=== PATIENT | female | born 1950 | race Caucasian/White ===

== ENCOUNTER 2021-02-04 06:57 | Day surgery (SDC) | payer OTHER, SELFPAY ==
[~2021-02-04] VITALS: Ht 172.7 cm; Wt 92.1 kg
[2021-02-04] MEDS ORDERED: CEFAZOLIN SOD 2 GM in D5W 50 ML IV ONE (07:00)
[2021-02-04] MEDS ORDERED: BUPIVACAINE /EPINEPHRINE/PF 0.5% 30 ML VIAL INJ ONE (08:50)
[2021-02-04] MEDS ORDERED: LR 1,000 ML IV.SOLN IV ONE (08:50)
[2021-02-04] MEDS ORDERED: hydrALAZINE HCL 20 MG/ML VIAL IVP ONE (08:50)
[2021-02-04] MEDS ORDERED: SUGAMMADEX SODIUM 200 MG/2 ML VIAL IV ONE (08:50)
[2021-02-04] MEDS ORDERED: MIDAZOLAM HCL 5 MG/5 ML VIAL IVP ONE (08:50)
[2021-02-04] MEDS ORDERED: SEVOFLURANE 15 MIN GAS INH ONE (08:50)
[2021-02-04] MEDS ORDERED: NS IRRIG SOLN 1000 ML IR ONE (08:50)
[2021-02-04] MEDS ORDERED: SUCCINYLCHOLINE CHLORIDE 20 MG/ML(QUELICIN) IVP ONE (08:50)
[2021-02-04] MEDS ORDERED: PROPOFOL 200MG/ 20ML VIAL (DIPRIVAN) IV ONE (08:50)
[2021-02-04] MEDS ORDERED: ROCURONIUM BROMIDE 10 MG/ML (ZEMURON) IV ONE (08:50)
[2021-02-04] MEDS ORDERED: fentaNYL CITRATE/PF 100 MCG/2 ML AMP IVP ONE (08:50)
[2021-02-04] MEDS ORDERED: DEXAMETHASONE SOD PHOSPHATE 4 MG/ML VIAL IVP ONE (08:50)
[2021-02-04] MEDS ORDERED: KETOROLAC TROMETHAMINE 30 MG VIAL IVP ONE (08:50)
[2021-02-04] MEDS ORDERED: MEPERIDINE HCL 10 MG/ML SYRINGE IV ONE (08:50)
[2021-02-04] MEDS ORDERED: MEPERIDINE HCL/PF 25 MG/ML DISP.SYRIN IVP PRN (11:15)
[2021-02-04] MEDS ORDERED: KETOROLAC TROMETHAMINE 30 MG VIAL IVP PRN (11:15)
[2021-02-04] MEDS ORDERED: ONDANSETRON HCL 4 MG/2 ML VIAL IVP PRN (11:15)
[2021-02-04] MEDS ORDERED: LR 1,000 ML IV SCH (11:15)
[2021-02-04] MEDS ORDERED: HYDROmorphone 1 MG/ML INJ. CARTRIDGE IVP PRN ×2 (11:15)
[2021-02-04] MEDS ORDERED: METOCLOPRAMIDE HCL 10 MG/2 ML VIAL IVP PRN (11:15)
[2021-02-04] MEDS ORDERED: HYDROcodone/ACETAMIN 5-325 MG TAB (NORCO/ VICODIN) PO PRN (11:45)
[2021-02-04 13:24] VITALS: BP_SYST 146
== END 2021-02-04 14:05 | disposition home or self-care (01) ==
LOC: SMU 06:57 → SDS 06:57
PROVIDERS: ATTEND Surgery
DX: K80.12 Calculus of gallbladder with acute and chronic cholecystitis without obstruction (principal); N73.6 Female pelvic peritoneal adhesions (postinfective); I12.9 Hypertensive chronic kidney disease with stage 1 through stage 4 chronic kidney disease, or unspecified chronic kidney disease; N18.30 Chronic kidney disease, stage 3 unspecified; E78.5 Hyperlipidemia, unspecified; K21.9 Gastro-esophageal reflux disease without esophagitis; Z90.710 Acquired absence of both cervix and uterus; Z20.822 Contact with and (suspected) exposure to COVID-19
CPT/HCPCS: 47562; 88304; C1727; C1758; C9399; J0330; J0360; J0690; J1100; J1885; J2175; J2250; J2704; J3010; J3490; J7060; J7120; U0003; Q9967

== ENCOUNTER 2023-11-28 08:01 | Inpatient (IN) | payer OTHER ==
[~2023-11-28] VITALS: Ht 172.7 cm; Wt 78.9 kg
[2023-11-28 08:05] VITALS: BP_SYST 124; PULSE 97; RESP 20; TEMP 97.6; O2SAT 97
[2023-11-28 09:07] LABS: HEMATOCRIT 37.9 % (36-48); HEMOGLOBIN 12.9 g/dL (12.0-16.0); MEAN CORPUSCULAR HEMOGLOBIN 30 pg (27-31); MEAN CORPUSCULAR HGB CONC 34 % (32-36); MEAN CORPUSCULAR VOLUME 87 fL (79.0-98.0); PLATELET COUNT (AUTO) 260 K/uL (130-430); RED BLOOD CELL COUNT(AUTO) 4.35 MIL/uL (4.2-6.2); WHITE BLOOD COUNT (AUTO) 7.8 K/uL (4.8-10.8)
[2023-11-28 09:19] LABS: ALANINE AMINOTRANSFERASE 274 U/L (12-78); ALBUMIN 2.6 g/dL (3.4-4.8); ANION GAP 11 (5-15); ASPARTATE AMINOTRANSFERASE 209 U/L (10-37); BILIRUBIN,DIRECT 18.6 mg/dL (0.0-0.3); CALCIUM 9.3 mg/dL (8.4-11.0); CARBON DIOXIDE 26 mmol/L (23-29); CHLORIDE 96 mmol/L (98-107); CREATININE 0.85 mg/dL (0.55-1.30); GLUCOSE 274 mg/dL (74-106); LIPASE 32 U/L (16-77); POTASSIUM 3.7 mmol/L (3.5-5.1); SODIUM SERUM 133 mmol/L (136-145); TOTAL PROTEIN, SERUM 6.2 g/dL (6.4-8.3); UREA NITROGEN, BLOOD 14 mg/dL (8-21)
[2023-11-28 09:21] LABS: TOTAL BILIRUBIN 21.9 mg/dL (0.0-1.0)
[2023-11-28 10:45] LABS: ATYPICAL LYMPHOCYTES % 7 % (0-0); BAND % (MANUAL) 2 % (0-6); BASOPHILS % (MANUAL) 0 % (0-2); EOSINOPHILS % (MANUAL) 0 % (0-7); LYMPHOCYTES % (MANUAL) 38 % (20-46); MONOCYTES % (MANUAL) 12 % (0-11); PLATELET ESTIMATE ADEQUATE (ADEQUATE)
[2023-11-28 11:33] LABS: ALBUMIN 2.6 g/dL (3.4-4.8); BILIRUBIN,DIRECT 19.1 mg/dL (0.0-0.3); TOTAL PROTEIN, SERUM 6.2 g/dL (6.4-8.3)
[2023-11-28] MEDS: ONDANSETRON HCL 4 MG/2 ML VIAL IVP PRN (11:40)
[2023-11-28] MEDS: 0.45% NACL 1,000 ML IV ONE (11:44)
[2023-11-28 11:45] LABS: TOTAL BILIRUBIN 22.2 mg/dL (0.0-1.0)
[2023-11-28 15:44] VITALS: BP_SYST 135; PULSE 81; RESP 16; TEMP 97.9; O2SAT 96
[2023-11-28 20:00] VITALS: BP_SYST 127; PULSE 77; RESP 18; TEMP 97.7; O2SAT 95
[2023-11-28 22:17] LABS: INR 1.1 (0.8-1.2); PROTHROMBIN TIME 11.3 SECS (9.5-12.5)
[2023-11-29] VITALS: BP_SYST 142; PULSE 64; RESP 16; TEMP 97.7; O2SAT 99
[2023-11-29 08:09] LABS: HEMATOCRIT 35.9 % (36-48); HEMOGLOBIN 12.3 g/dL (12.0-16.0); MEAN CORPUSCULAR HEMOGLOBIN 30 pg (27-31); MEAN CORPUSCULAR HGB CONC 34 % (32-36); MEAN CORPUSCULAR VOLUME 87 fL (79.0-98.0); PLATELET COUNT (AUTO) 261 K/uL (130-430); RED BLOOD CELL COUNT(AUTO) 4.13 MIL/uL (4.2-6.2); RED CELL DISTRIBUTION WIDTH 14.3 % (9.0-15.0); WHITE BLOOD COUNT (AUTO) 5.4 K/uL (4.8-10.8)
[2023-11-29 08:10] LABS: ANION GAP 4 (5-15); CALCIUM 8.6 mg/dL (8.4-11.0); CARBON DIOXIDE 28 mmol/L (23-29); CHLORIDE 99 mmol/L (98-107); CREATININE 0.75 mg/dL (0.55-1.30); GLUCOSE 211 mg/dL (74-106); POTASSIUM 3.8 mmol/L (3.5-5.1); SODIUM SERUM 131 mmol/L (136-145); UREA NITROGEN, BLOOD 10 mg/dL (8-21)
[2023-11-29 08:13] VITALS: BP_SYST 150; PULSE 74; RESP 16; TEMP 97.4; O2SAT 98
[2023-11-29 09:46] LABS: BASOPHILS % (MANUAL) 0 % (0-2); EOSINOPHILS % (MANUAL) 4 % (0-7); LYMPHOCYTES % (MANUAL) 24 % (20-46); MONOCYTES % (MANUAL) 9 % (0-11)
[2023-11-29 09:47] LABS: PLATELET ESTIMATE ADEQUATE (ADEQUATE); STOMATOCYTES FEW; TARGET CELLS FEW
[2023-11-29 11:17] VITALS: BP_SYST 139; PULSE 94; RESP 16; TEMP 97.1; O2SAT 97
[2023-11-29 12:04] LABS: BASOPHILS # (AUTO) 0.1 K/uL (0.0-0.2); BASOPHILS % (AUTO) 1.2 % (0.0-2.0); EOSINOPHILS # (AUTO) 0.1 K/uL (0.0-0.4); EOSINOPHILS % (AUTO) 1.7 % (0.0-4.0); HEMATOCRIT 37.1 % (36-48); HEMOGLOBIN 12.8 g/dL (12.0-16.0); LYMPHOCYTES # (AUTO) 2.5 K/uL (1.0-5.5); MEAN CORPUSCULAR HEMOGLOBIN 30 pg (27-31); MEAN CORPUSCULAR HGB CONC 34 % (32-36); MEAN CORPUSCULAR VOLUME 86 fL (79.0-98.0); MONOCYTES # (AUTO) 0.8 K/uL (0.0-1.0); MONOCYTES % (AUTO) 13.4 % (1.7-9.3); NEUTROPHILS # (AUTO) 2.7 K/uL (1.8-7.7); PLATELET COUNT (AUTO) 276 K/uL (130-430); RED CELL DISTRIBUTION WIDTH 13.9 % (9.0-15.0); WHITE BLOOD COUNT (AUTO) 6.2 K/uL (4.8-10.8)
[2023-11-29 12:17] LABS: NEUTROPHILS % (AUTO) 43.7 % (40.0-70.0)
[2023-11-29] MEDS ORDERED: EZET-84 PO (12:52)
[2023-11-29] MEDS ORDERED: NOR10 PO (12:52)
[2023-11-29] MEDS ORDERED: METO-306 PO (14:57)
[2023-11-29 15:30] VITALS: BP_SYST 151; PULSE 72; RESP 16; TEMP 97.9; O2SAT 98
[2023-11-29] MEDS: PANTOPRAZOLE SODIUM 40 MG/VIAL (PROTONIX) IVP ONE (18:24)
[2023-11-29] MEDS: ATORVASTATIN 20 MG TABLET PO ONE (18:25)
[2023-11-29] MEDS: amLODIPine BESYLATE 10 MG TABLET PO ONE (18:25)
[2023-11-29] MEDS: METOPROLOL SUCCINATE 50 MG TAB.SR.24H (TOPROL XL) PO ONE (18:26)
[2023-11-29 18:57] LABS: ALANINE AMINOTRANSFERASE 252 U/L (12-78); ALBUMIN 2.4 g/dL (3.4-4.8); ANION GAP 7 (5-15); ASPARTATE AMINOTRANSFERASE 177 U/L (10-37); CALCIUM 8.7 mg/dL (8.4-11.0); CARBON DIOXIDE 30 mmol/L (23-29); CHLORIDE 99 mmol/L (98-107); GLUCOSE 259 mg/dL (74-106); POTASSIUM 4.1 mmol/L (3.5-5.1); SODIUM SERUM 136 mmol/L (136-145); TOTAL PROTEIN, SERUM 5.8 g/dL (6.4-8.3); UREA NITROGEN, BLOOD 10 mg/dL (8-21)
[2023-11-29 19:11] LABS: TOTAL BILIRUBIN 21.6 mg/dL (0.0-1.0)
[2023-11-29 20:00] VITALS: BP_SYST 136; PULSE 67; RESP 18; TEMP 97.5; O2SAT 97
[2023-11-30] VITALS: BP_SYST 117; PULSE 68; RESP 18; TEMP 97.6; O2SAT 97
[2023-11-30 04:54] LABS: HEMOGLOBIN A1C 9.37 % (<5.7)
[2023-11-30 05:16] LABS: ALANINE AMINOTRANSFERASE 235 U/L (12-78); ALBUMIN 2.2 g/dL (3.4-4.8); ANION GAP 8 (5-15); ASPARTATE AMINOTRANSFERASE 169 U/L (10-37); CALCIUM 8.6 mg/dL (8.4-11.0); CARBON DIOXIDE 27 mmol/L (23-29); CHLORIDE 103 mmol/L (98-107); CREATININE 0.69 mg/dL (0.55-1.30); GLUCOSE 245 mg/dL (74-106); POTASSIUM 4.1 mmol/L (3.5-5.1); SODIUM SERUM 138 mmol/L (136-145); TOTAL PROTEIN, SERUM 5.5 g/dL (6.4-8.3); UREA NITROGEN, BLOOD 8 mg/dL (8-21)
[2023-11-30 05:37] LABS: TOTAL BILIRUBIN 20.3 mg/dL (0.0-1.0)
[2023-11-30 05:44] LABS: BASOPHILS # (AUTO) 0.1 K/uL (0.0-0.2); BASOPHILS % (AUTO) 1.7 % (0.0-2.0); EOSINOPHILS # (AUTO) 0.1 K/uL (0.0-0.4); EOSINOPHILS % (AUTO) 1.6 % (0.0-4.0); HEMATOCRIT 35.4 % (36-48); HEMOGLOBIN 12.2 g/dL (12.0-16.0); LYMPHOCYTES # (AUTO) 2.6 K/uL (1.0-5.5); LYMPHOCYTES % (AUTO) 52.3 % (20.5-51.5); MEAN CORPUSCULAR HEMOGLOBIN 30 pg (27-31); MEAN CORPUSCULAR HGB CONC 34 % (32-36); MEAN CORPUSCULAR VOLUME 87 fL (79.0-98.0); MONOCYTES # (AUTO) 0.6 K/uL (0.0-1.0); MONOCYTES % (AUTO) 11.8 % (1.7-9.3); NEUTROPHILS # (AUTO) 1.6 K/uL (1.8-7.7); NEUTROPHILS % (AUTO) 32.6 % (40.0-70.0); PLATELET COUNT (AUTO) 259 K/uL (130-430); RED BLOOD CELL COUNT(AUTO) 4.07 MIL/uL (4.2-6.2); RED CELL DISTRIBUTION WIDTH 14.2 % (9.0-15.0); WHITE BLOOD COUNT (AUTO) 5.1 K/uL (4.8-10.8)
[2023-11-30 06:01] LABS: BILIRUBIN,URINE 3+ (NEGATIVE); BLOOD, URINE NEGATIVE (NEGATIVE); CLARITY/URINE SL CLOUDY (CLEAR); COLOR,URINE YELLOW (YELLOW); GLUCOSE,URINE TRACE (NEGATIVE); KETONES,URINE NEGATIVE (NEGATIVE); LEUKOCYTE ESTERASE ,URINE 1+ (NEGATIVE); NITRITE, URINE POSITIVE (NEGATIVE); PROTEIN URINE NEGATIVE (NEGATIVE); UROBILINOGEN,URINE 0.2 (0.2-1.0)
[2023-11-30 06:16] LABS: BACTERIA,URINE MANY /HPF (None Seen); RBC,URINE 0-3 /HPF (0-3); WBC,URINE 20-50 /HPF (0-3)
[2023-11-30] MEDS ORDERED: SIMETHICONE 40 MG/0.6 ML ML ONE (06:40)
[2023-11-30 07:06] LABS: HEPATITIS A AB, IgM Negative (Negative); HEPATITIS B CORE AB, IgM Negative (Negative); HEPATITIS B SURFACE AG Negative (Negative); HEPATITIS C VIRUS AB Non Reactive (Non Reactive)
[2023-11-30 08:00] VITALS: BP_SYST 143; PULSE 70; RESP 16; TEMP 96.5; O2SAT 97
[2023-11-30] MEDS: PANTOPRAZOLE SODIUM 40 MG/VIAL (PROTONIX) IVP SCH (08:53)
[2023-11-30] MEDS: METOPROLOL SUCCINATE 50 MG TAB.SR.24H (TOPROL XL) PO SCH (09:00)
[2023-11-30] MEDS: amLODIPine BESYLATE 10 MG TABLET PO SCH (09:00)
[2023-11-30] MEDS: ATORVASTATIN 20 MG TABLET PO SCH (09:00)
[2023-11-30] MEDS ORDERED: DEXTROSE 50% JECT 50 ML DISP.SYRIN IVP PRN (10:00)
[2023-11-30] MEDS ORDERED: GLUCOSE (DEXTROSE) ORAL GEL -Adults PO PRN (10:00)
[2023-11-30] MEDS ORDERED: INDOMETHACIN 50 MG SUPP.RECT RC ONE (10:00)
[2023-11-30] MEDS ORDERED: LIDOCAINE MPF 2% 20 MG/1 ML, 5 ML VIAL INH ONE (10:30)
[2023-11-30] MEDS ORDERED: iohexoL 240 mgI/mL, 50 ML INFUS..BTL IV ONE (10:51)
[2023-11-30] MEDS ORDERED: NACL 0.9% 1,000 ML IV SCH (11:30)
[2023-11-30] MEDS ORDERED: ONDANSETRON HCL 4 MG/2 ML VIAL IVP PRN (11:30)
[2023-11-30] MEDS ORDERED: KETOROLAC TROMETHAMINE 30 MG VIAL IVP PRN (11:30)
[2023-11-30 12:00] VITALS: BP_SYST 148; PULSE 66; RESP 18; TEMP 96.4; O2SAT 98
[2023-11-30] MEDS: hydrALAZINE HCL 20 MG/ML VIAL IVP ONE (12:47)
[2023-11-30] MEDS ORDERED: hydrALAZINE HCL 20 MG/ML VIAL ONE (12:48)
[2023-11-30 16:00] VITALS: BP_SYST 134; PULSE 66; RESP 14; TEMP 97.2; O2SAT 100
[2023-11-30] MEDS: INSULIN REGULAR, HUMAN 100 UNITS/ML, 3 ML VIAL (humuLIN R) SUBCUT PRN (18:08)
[2023-11-30] MEDS: LR 1,000 ML IV SCH (18:58)
[2023-11-30 20:00] VITALS: BP_SYST 135; PULSE 69; RESP 18; TEMP 97.6; O2SAT 97
[2023-11-30] MEDS: cefTRIAXone 1 GM in D5W 50 ML IV SCH (21:31)
[2023-11-30] MEDS: INSULIN GLARGINE 100 UNITS/ML, 10 ML VIAL SUBCUT SCH (21:35)
[2023-12-01] VITALS (8 sets, daily range): BP systolic 128–167; PULSE 63–77; RESP 17–18; TEMP 97.7–99.2; O2SAT 97–100
[2023-12-01 09:52] LABS: BASOPHILS % (AUTO) 0.1 % (0.0-2.0); EOSINOPHILS % (AUTO) 0.2 % (0.0-4.0); HEMATOCRIT 38.9 % (36-48); HEMOGLOBIN 13.2 g/dL (12.0-16.0); LYMPHOCYTES # (AUTO) 6.4 K/uL (1.0-5.5); LYMPHOCYTES % (AUTO) 50.8 % (20.5-51.5); MEAN CORPUSCULAR HEMOGLOBIN 30 pg (27-31); MEAN CORPUSCULAR HGB CONC 34 % (32-36); MEAN CORPUSCULAR VOLUME 88 fL (79.0-98.0); MONOCYTES # (AUTO) 0.8 K/uL (0.0-1.0); MONOCYTES % (AUTO) 6.6 % (1.7-9.3); NEUTROPHILS # (AUTO) 5.3 K/uL (1.8-7.7); NEUTROPHILS % (AUTO) 42.3 % (40.0-70.0); PLATELET COUNT (AUTO) 304 K/uL (130-430); RED BLOOD CELL COUNT(AUTO) 4.44 MIL/uL (4.2-6.2); RED CELL DISTRIBUTION WIDTH 14.6 % (9.0-15.0); WHITE BLOOD COUNT (AUTO) 12.6 K/uL (4.8-10.8)
[2023-12-01 10:10] LABS: ALANINE AMINOTRANSFERASE 205 U/L (12-78); ALBUMIN 2.5 g/dL (3.4-4.8); ANION GAP 12 (5-15); ASPARTATE AMINOTRANSFERASE 94 U/L (10-37); CALCIUM 9.4 mg/dL (8.4-11.0); CARBON DIOXIDE 25 mmol/L (23-29); CHLORIDE 96 mmol/L (98-107); CREATININE 0.91 mg/dL (0.55-1.30); GLUCOSE 314 mg/dL (74-106); POTASSIUM 4.5 mmol/L (3.5-5.1); SODIUM SERUM 133 mmol/L (136-145); TOTAL BILIRUBIN 11.5 mg/dL (0.0-1.0); TOTAL PROTEIN, SERUM 6.6 g/dL (6.4-8.3); UREA NITROGEN, BLOOD 10 mg/dL (8-21)
[2023-12-01] MEDS ORDERED: traMADol HCL HCL 50 MG TABLET (ULTRAM) PO PRN (15:30)
[2023-12-01] MEDS: ACETAMINOPHEN 325 MG TABLET PO PRN (16:05)
[2023-12-01] MEDS: INSULIN GLARGINE 100 UNITS/ML, 10 ML VIAL SUBCUT SCH (21:22)
[2023-12-02] VITALS: BP_SYST 132; PULSE 70; RESP 17; TEMP 96.2; O2SAT 100
[2023-12-02 05:47] LABS: HEMATOCRIT 34.7 % (36-48); HEMOGLOBIN 11.8 g/dL (12.0-16.0); MEAN CORPUSCULAR HEMOGLOBIN 30 pg (27-31); MEAN CORPUSCULAR HGB CONC 34 % (32-36); MEAN CORPUSCULAR VOLUME 88 fL (79.0-98.0); PLATELET COUNT (AUTO) 254 K/uL (130-430); RED BLOOD CELL COUNT(AUTO) 3.94 MIL/uL (4.2-6.2); RED CELL DISTRIBUTION WIDTH 14.5 % (9.0-15.0); WHITE BLOOD COUNT (AUTO) 10.5 K/uL (4.8-10.8)
[2023-12-02 06:25] LABS: ALANINE AMINOTRANSFERASE 134 U/L (12-78); ALBUMIN 2.1 g/dL (3.4-4.8); ANION GAP 11 (5-15); ASPARTATE AMINOTRANSFERASE 47 U/L (10-37); CARBON DIOXIDE 25 mmol/L (23-29); CHLORIDE 102 mmol/L (98-107); GLUCOSE 223 mg/dL (74-106); POTASSIUM 3.7 mmol/L (3.5-5.1); SODIUM SERUM 138 mmol/L (136-145); TOTAL BILIRUBIN 7.2 mg/dL (0.0-1.0); TOTAL PROTEIN, SERUM 5.9 g/dL (6.4-8.3); UREA NITROGEN, BLOOD 9 mg/dL (8-21)
[2023-12-02 08:00] VITALS: O2SAT 97
[2023-12-02 08:10] VITALS: BP_SYST 130; PULSE 74; RESP 18; TEMP 97.8; O2SAT 98
[2023-12-02 08:59] LABS: BASOPHILS % (MANUAL) 0 % (0-2); EOSINOPHILS % (MANUAL) 1 % (0-7); LYMPHOCYTES % (MANUAL) 18 % (20-46); MONOCYTES % (MANUAL) 6 % (0-11)
[2023-12-02 09:00] LABS: ATYPICAL LYMPHOCYTES % 2 % (0-0); PLATELET ESTIMATE ADEQUATE (ADEQUATE)
[2023-12-02 09:01] LABS: STOMATOCYTES FEW; TARGET CELLS FEW
[2023-12-02 12:51] VITALS: BP_SYST 134; PULSE 74; RESP 18; TEMP 96.8; O2SAT 96
[2023-12-02] MEDS ORDERED: LEVO250T73 PO (14:48)
[2023-12-02] MEDS ORDERED: GLIP5TAB26 PO (14:48)
[2023-12-02] MEDS ORDERED: PRO40 PO (14:48)
[2023-12-02] MEDS ORDERED: INSU300I12 SUBCUT (14:48)
[2023-12-02 14:49] VITALS: BP_SYST 124; PULSE 74; RESP 18; TEMP 97.7; O2SAT 98
== END 2023-12-02 16:15 | disposition home or self-care (01) | DRG 445 ==
LOC: SED 08:01 → SMU 10:38
PROVIDERS: ADMIT Specialist; ATTEND Specialist
PROC: 0F7D8DZ Dilation of Pancreatic Duct with Intraluminal Device, Via Natural or Artificial Opening Endoscopic (ICD-10-PCS; 2023-11-30)
PROC: BF111ZZ Fluoroscopy of Biliary and Pancreatic Ducts using Low Osmolar Contrast (ICD-10-PCS; 2023-11-30)
PROC: 0FDG8ZX Extraction of Pancreas, Via Natural or Artificial Opening Endoscopic, Diagnostic (ICD-10-PCS; principal; 2023-11-30 10:00)
DX: K83.1 Obstruction of bile duct (principal); E87.1 Hypo-osmolality and hyponatremia; N39.0 Urinary tract infection, site not specified; E88.09 Other disorders of plasma-protein metabolism, not elsewhere classified; E11.9 Type 2 diabetes mellitus without complications; I10 Essential (primary) hypertension; Z90.49 Acquired absence of other specified parts of digestive tract; Z90.710 Acquired absence of both cervix and uterus; R19.09 Other intra-abdominal and pelvic swelling, mass and lump
CPT/HCPCS: 36415; 71045; 74181; 76000; 76705; 80048; 80053; 80074; 80076; 81000; 81001; 81015; 82948; 83037; 83690; 83880; 84484; 85007; 85025; 85027; 85610; 86301; 87081; 87086; 87186; 88160; 88305; 93005; 96361; 96374; 99291; C1769; C9113; J0330; J0360; J0696; J1815; J1885; J2405; J2704; J2765; J3010; J3490; J7030; J7060; Q9966; Q9967

== ENCOUNTER 2024-05-22 09:20 | Emergency (ER) | payer OTHER ==
[~2024-05-22] VITALS: Ht 172.7 cm; Wt 66.2 kg
[2024-05-22 09:20] VITALS: BP_SYST 129; PULSE 81; RESP 18; TEMP 98.2; O2SAT 98
[~2024-05-22 09:20] MED LIST: EZET-84 PO; GLIP5TAB26 PO; INSU300I12 SUBCUT; LEVO250T73 PO; METO-306 PO; NOR10 PO; PRO40 PO
[2024-05-22 09:56] LABS: BASOPHILS # (AUTO) 0.1 K/uL (0.0-0.2); BASOPHILS % (AUTO) 0.9 % (0.0-2.0); EOSINOPHILS # (AUTO) 0.5 K/uL (0.0-0.4); EOSINOPHILS % (AUTO) 6.4 % (0.0-4.0); HEMATOCRIT 34.9 % (36-48); HEMOGLOBIN 11.8 g/dL (12.0-16.0); LYMPHOCYTES # (AUTO) 0.9 K/uL (1.0-5.5); LYMPHOCYTES % (AUTO) 10.8 % (20.5-51.5); MEAN CORPUSCULAR HEMOGLOBIN 29 pg (27-31); MEAN CORPUSCULAR HGB CONC 34 % (32-36); MEAN CORPUSCULAR VOLUME 87 fL (79.0-98.0); MONOCYTES # (AUTO) 0.6 K/uL (0.0-1.0); MONOCYTES % (AUTO) 7.2 % (1.7-9.3); NEUTROPHILS % (AUTO) 74.7 % (40.0-70.0); PLATELET COUNT (AUTO) 276 K/uL (130-430); RED BLOOD CELL COUNT(AUTO) 4.04 MIL/uL (4.2-6.2); RED CELL DISTRIBUTION WIDTH 15.5 % (9.0-15.0); WHITE BLOOD COUNT (AUTO) 8.1 K/uL (4.8-10.8)
[2024-05-22 10:04] LABS: ALANINE AMINOTRANSFERASE 68 U/L (12-78); ALBUMIN 2.1 g/dL (3.4-4.8); ANION GAP 7 (5-15); ASPARTATE AMINOTRANSFERASE 116 U/L (10-37); CALCIUM 8.6 mg/dL (8.4-11.0); CARBON DIOXIDE 28 mmol/L (23-29); CHLORIDE 104 mmol/L (98-107); CREATININE 0.97 mg/dL (0.55-1.30); GLUCOSE 80 mg/dL (74-106); SODIUM SERUM 139 mmol/L (136-145); TOTAL BILIRUBIN 0.6 mg/dL (0.0-1.0); TOTAL PROTEIN, SERUM 5.7 g/dL (6.4-8.3); UREA NITROGEN, BLOOD 9 mg/dL (8-21)
[2024-05-22 10:06] LABS: BILIRUBIN,URINE NEGATIVE (NEGATIVE); BLOOD, URINE NEGATIVE (NEGATIVE); CLARITY/URINE CLEAR (CLEAR); COLOR,URINE YELLOW (YELLOW); GLUCOSE,URINE NEGATIVE (NEGATIVE); KETONES,URINE NEGATIVE (NEGATIVE); LEUKOCYTE ESTERASE ,URINE TRACE (NEGATIVE); NITRITE, URINE POSITIVE (NEGATIVE); PROTEIN URINE NEGATIVE (NEGATIVE)
[2024-05-22 10:07] LABS: BILIRUBIN,DIRECT 0.4 mg/dL (0.0-0.3)
[2024-05-22 11:22] LABS: BACTERIA,URINE None Seen /HPF (None Seen); RBC,URINE NONE SEEN /HPF (0-3); WBC,URINE 0-3 /HPF (0-3)
[2024-05-22] MEDS ORDERED: POTA-197 PO (11:31)
[2024-05-22] MEDS ORDERED: NITR-85 PO (11:31)
[2024-05-22] MEDS: POTASSIUM CHLORIDE 20 MEQ/PKT PACKET PO ONE (11:44)
[2024-05-22] MEDS: cefTRIAXone 1 GM IVPB PREMIX 50 ML IV ONE (11:45)
[2024-05-22] MEDS: KCL 20 mEq in 100 mL (PREMIX) 100 ML IV ONE (12:15)
[2024-05-22 14:59] VITALS: BP_SYST 133; PULSE 86; RESP 18; TEMP 97.9; O2SAT 98
== END 2024-05-22 14:54 | disposition home or self-care (01) ==
LOC: SED 09:20
DX: E87.6 Hypokalemia (principal); N39.0 Urinary tract infection, site not specified; R53.1 Weakness; E11.9 Type 2 diabetes mellitus without complications; I10 Essential (primary) hypertension; Z79.4 Long term (current) use of insulin; Z79.84 Long term (current) use of oral hypoglycemic drugs; Z79.899 Other long term (current) drug therapy; Z20.822 Contact with and (suspected) exposure to COVID-19
CPT/HCPCS: 99285; 96365; 71045; 96366; 87426; 80076; 80048; 81000; 81001; 85025; 87086; 84484; 36415; 93005; 96368; 81015; J0696; J3480; J7030